=== PATIENT | male | born 1985 | race African-American/Black ===

== ENCOUNTER 2016-12-13 22:02 | Emergency (ER) | payer MEDICAID | END 2016-12-14 02:22 | disposition home or self-care (01) | LOC: ER 22:02 | DX: R00.2 Palpitations (principal); F17.210 Nicotine dependence, cigarettes, uncomplicated | CPT/HCPCS: 36415; 71020; 80053; 80307; 82553; 84439; 84443; 84484; 85025; 93005 ==